=== PATIENT | male | born 1990 | race Caucasian/White ===

== ENCOUNTER 2022-02-06 14:07 | Emergency (ER) | payer BC | END 2022-02-06 15:54 | disposition home or self-care (01) | LOC: JD.ED 14:07 | DX: S52.612A Displaced fracture of left ulna styloid process, initial encounter for closed fracture (principal); Z88.2 Allergy status to sulfonamides; W55.19XA Other contact with horse, initial encounter | CPT/HCPCS: 29125; 73110-26-LT; 73110-LT; 99283; 99283-25 ==